=== PATIENT | female | born 1990 | race Caucasian/White ===

== ENCOUNTER 2020-05-21 10:33 | Outpatient (REF) | payer OTHER, SELFPAY ==
[2020-05-21 10:51] LABS: COVID-19 Test Negative (Negative)
== END 2020-05-21 10:34 | disposition home or self-care (01) ==
LOC: HO.LAB 10:33
PROVIDERS: PCP Family Medicine; Visit Provider Internal Medicine
DX: Z20.828 Contact with and (suspected) exposure to other viral communicable diseases (principal)
CPT/HCPCS: 87635; C9803

== ENCOUNTER 2020-06-23 08:00 | Outpatient (RCR) | payer OTHER, SELFPAY ==
[2020-05-08 08:15] VITALS: BP 95/64; PULSE 89; O2SAT 100
== END 2020-07-23 07:30 | disposition other institution (70) ==
LOC: HO.PT 08:00
PROVIDERS: PCP Family Medicine; Visit Provider Advanced Practice Midwife
DX: O26.892 Other specified pregnancy related conditions, second trimester (principal); M54.5 Low back pain; Z3A.00 Weeks of gestation of pregnancy not specified
CPT/HCPCS: 97110; 97140; 97161; 97530

== ENCOUNTER 2020-09-22 12:17 | Outpatient (REF) | payer OTHER, SELFPAY ==
[2020-09-22 14:29] LABS: Alanine Aminotransferase 11 U/L (0-31); Albumin Level 4.2 g/dL (3.5-5.0); Alkaline Phosphatase 91 U/L (39-117); Anion Gap 10 (12-20); Aspartate Amino Transferase 16 U/L (5-31); Bilirubin Total < 0.2 mg/dL (0.0-1.0); Blood Urea Nitrogen 13 mg/dL (9-16); C Reactive Protein 0.05 mg/dL (< or = 0.50); Calcium 9.6 mg/dL (8.4-10.2); Carbon Dioxide 28 mmol/L (22-29); Chloride 107 mmol/L (96-108); Estimated Glomerular Filt Rate > 60; Glucose Random 99 mg/dL (60-115); Potassium 4.2 mmol/L (3.3-5.1); Sodium 141 mmol/L (135-145); Total Protein 7.9 g/dL (6.5-8.0)
[2020-09-24 20:02] LABS: TS Negative Control Passed; TS Panel A 0; TS Panel B 0; TS Positive Control Passed; TSpotTB Negative (SeeBelow)
== END 2020-09-22 12:18 | disposition home or self-care (01) ==
LOC: HO.LAB 12:17
PROVIDERS: PCP Family Medicine; Visit Provider Internal Medicine Gastroenterology
DX: K50.80 Crohn's disease of both small and large intestine without complications (principal)
CPT/HCPCS: 36415; 80053; 86140; 86481

== ENCOUNTER 2021-08-30 14:07 | Outpatient (REF) | payer OTHER, SELFPAY ==
[2021-08-30 14:49] LABS: Influenza A PCR NEGATIVE (Negative); Influenza B PCR NEGATIVE (Negative); Resp Syncy Virus RNA Qual PCR NEGATIVE (Negative); SARS COV2 PCR INHOUSE NEGATIVE (Negative)
== END 2021-08-30 14:08 | disposition home or self-care (01) ==
LOC: HO.LNP 14:07
PROVIDERS: Visit Provider Family Medicine
DX: Z20.822 Contact with and (suspected) exposure to COVID-19 (principal); B34.9 Viral infection, unspecified
CPT/HCPCS: 0241U; 87071

== ENCOUNTER 2021-09-23 10:52 | Outpatient (REF) | payer OTHER, SELFPAY ==
[2021-09-23 11:13] LABS: MANUAL DIFF FLAG NO
[2021-09-23 11:55] LABS: Basophils Percent Auto 0.4 % (0-2); Hematocrit 38.4 % (37.0-47.0); Hemoglobin 11.6 g/dl (12.0-16.0); Imm Gran Abs Auto 0.01 X10*3/uL (0.00-0.03); Imm Gran Pct Auto 0.2 % (0.0-0.4); Lymphocytes Absolute Auto 1.6 X10*3/uL (1.2-4.9); Lymphocytes Percent Auto 29.3 % (20-40); Mean Corpuscular HGB Conc 30.2 g/dl (31.0-35.0); Mean Corpuscular Hemoglobin 26.2 pg (27.0-33.0); Mean Corpuscular Volume 86.7 fL (80.0-98.0); Mean Platelet Volume 8.1 fL (9.4-12.3); Monocytes Absolute Auto 0.4 X10*3/uL (0.1-1.2); Monocytes Percent Auto 6.9 % (2-11); Neutrophils Absolute Auto 3.4 x10*3/uL (2.0-8.3); Neutrophils Percent Auto 63.2 % (45-73); Platelet Count 414 X10*3/uL (160-400); Red Blood Count 4.43 X10*6/uL (4.20-5.50); White Blood Count 5.4 X10*3/uL (4.8-10.8)
[2021-09-23 12:34] LABS: Alanine Aminotransferase 8 U/L (0-31); Albumin Level 4.5 g/dL (3.5-5.0); Alkaline Phosphatase 85 U/L (39-117); Anion Gap 9 (12-20); Aspartate Amino Transferase 13 U/L (5-31); Bilirubin Total 0.7 mg/dL (0.0-1.0); Blood Urea Nitrogen 16 mg/dL (9-16); C Reactive Protein 0.14 mg/dL (< or = 0.50); Calcium 9.7 mg/dL (8.4-10.2); Carbon Dioxide 27 mmol/L (22-29); Chloride 104 mmol/L (96-108); Estimated Glomerular Filt Rate > 60; Glucose Random 75 mg/dL (60-115); Potassium 4.4 mmol/L (3.3-5.1); Sodium 136 mmol/L (135-145); Total Protein 8.4 g/dL (6.5-8.0)
[2021-09-23 12:55] LABS: Vitamin D 25-OH Total 14.3 ng/mL (>30)
[2021-09-24 08:04] LABS: HBS Num1 11.54 mIU/mL (0-7.99)
[2021-09-24 09:30] LABS: HBS Num2 10.35 mIU/mL (0-7.99); HBS Num3 9.75 mIU/mL (0-7.99)
[2021-09-24 09:31] LABS: ~Hepatitis B Surface Antibody GRAYZONE (Nonreactive)
[2021-09-25 14:16] LABS: TS Negative Control Passed; TS Panel A 0; TS Panel B 0; TS Positive Control Passed; TSpotTB Negative (Negative)
== END 2021-09-23 10:53 | disposition home or self-care (01) ==
LOC: HO.LAB 10:52
PROVIDERS: Visit Provider Internal Medicine Gastroenterology
DX: Z11.1 Encounter for screening for respiratory tuberculosis (principal); K50.90 Crohn's disease, unspecified, without complications
CPT/HCPCS: 36415; 80053; 82306; 85025; 86140; 86481; 86706

== ENCOUNTER 2022-05-06 15:00 | Outpatient (REF) | payer OTHER, SELFPAY ==
[2022-05-06 15:31] LABS: MANUAL DIFF FLAG NO
[2022-05-06 16:02] LABS: Basophils Percent Auto 0.1 % (0-2); Eosinophils Percent Auto 0.2 % (0-4); Hematocrit 34.6 % (37.0-47.0); Hemoglobin 11.2 g/dl (12.0-16.0); Imm Gran Abs Auto 0.03 X10*3/uL (0.00-0.03); Imm Gran Pct Auto 0.4 % (0.0-0.4); Lymphocytes Absolute Auto 1.8 X10*3/uL (1.2-4.9); Mean Corpuscular HGB Conc 32.4 g/dl (31.0-35.0); Mean Corpuscular Hemoglobin 26.9 pg (27.0-33.0); Mean Platelet Volume 8.2 fL (9.4-12.3); Monocytes Absolute Auto 0.3 X10*3/uL (0.1-1.2); Monocytes Percent Auto 3.8 % (2-11); Neutrophils Absolute Auto 6.2 x10*3/uL (2.0-8.3); Neutrophils Percent Auto 73.5 % (45-73); Platelet Count 323 X10*3/uL (160-400); Red Blood Count 4.17 X10*6/uL (4.20-5.50); Red Cell Distribution Width 13.1 % (11.0-16.0); White Blood Count 8.4 X10*3/uL (4.8-10.8)
[2022-05-06 16:10] LABS: Estimated Average Glucose 82 mg/dL; Hemoglobin A1c % 4.5 %
[2022-05-06 16:45] LABS: Syphilis Screen Nonreactive (Nonreactive)
[2022-05-06 16:47] LABS: Ferritin 36 ng/mL (10-122)
[2022-05-06 17:02] LABS: Folate 13.5 ng/mL (> or = 4.0); Vitamin B12 352 pg/mL (200-900)
[2022-05-09 04:40] LABS: HBsAGNum1 0.42 S/CO (0.00-0.99); HIV AB/AG Nonreactive (Nonreactive); HIV Num 1 0.07 S/CO (0.00-0.99); Hepatitis B Surface Antigen Negative (Negative); ~HepC Num1 0.11 S/CO (0.00-0.79); ~Hepatitis C Antibody Nonreactive (Nonreactive)
[2022-05-10 01:48] LABS: Rubella IgG Antibody 9.38 Index
== END 2022-05-06 15:01 | disposition home or self-care (01) ==
LOC: HO.LAB 15:00
PROVIDERS: PCP Family Medicine; Visit Provider Nurse Practitioner Family
DX: O99.611 Diseases of the digestive system complicating pregnancy, first trimester (principal); K50.919 Crohn's disease, unspecified, with unspecified complications
CPT/HCPCS: 36415; 82607; 82728; 82746; 83036; 85025; 86762; 86780; 86787; 86803; 87086; 87340; 87389

== ENCOUNTER 2023-12-22 16:22 | Outpatient (REF) | payer OTHER, SELFPAY ==
[2023-12-22 16:43] LABS: MANUAL DIFF FLAG NO
[2023-12-22 17:47] LABS: Basophils Percent Auto 0.3 % (0-2); Eosinophils Percent Auto 0.6 % (0-4); Hematocrit 35.9 % (37.0-47.0); Hemoglobin 11.3 g/dl (12.0-16.0); Imm Gran Abs Auto 0.02 X10*3/uL (0.00-0.03); Imm Gran Pct Auto 0.3 % (0.0-0.4); Lymphocytes Absolute Auto 2.1 X10*3/uL (1.2-4.9); Lymphocytes Percent Auto 32.1 % (20-40); Mean Corpuscular HGB Conc 31.5 g/dl (31.0-35.0); Mean Corpuscular Hemoglobin 26.7 pg (27.0-33.0); Mean Corpuscular Volume 84.9 fL (80.0-98.0); Mean Platelet Volume 8.4 fL (9.4-12.3); Monocytes Absolute Auto 0.4 X10*3/uL (0.1-1.2); Monocytes Percent Auto 5.9 % (2-11); Neutrophils Absolute Auto 3.9 x10*3/uL (2.0-8.3); Neutrophils Percent Auto 60.8 % (45-73); Platelet Count 344 X10*3/uL (160-400); Red Blood Count 4.23 X10*6/uL (4.20-5.50); Red Cell Distribution Width 13.8 % (11.0-16.0); White Blood Count 6.5 X10*3/uL (4.8-10.8)
[2023-12-22 18:22] LABS: Alanine Aminotransferase 10 U/L (0-31); Albumin Level 4.3 g/dL (3.5-5.0); Alkaline Phosphatase 75 U/L (39-117); Anion Gap 10 (12-20); Aspartate Amino Transferase 14 U/L (5-31); Bilirubin Total 0.4 mg/dL (0.0-1.0); Blood Urea Nitrogen 10 mg/dL (9-16); Calcium 9.5 mg/dL (8.4-10.2); Carbon Dioxide 26 mmol/L (22-29); Chloride 107 mmol/L (96-108); Cholesterol 139 mg/dL (<200); Estimated Glomerular Filt Rate > 60; Glucose Random 78 mg/dL (60-115); HDL Cholesterol 55 mg/dL (>40); LDL Cholesterol Calculated 75 mg/dL (<100); Potassium 3.8 mmol/L (3.3-5.1); Sodium 139 mmol/L (135-145); Total Protein 8.1 g/dL (6.5-8.0); Triglycerides 47 mg/dL (<150)
[2023-12-22 18:40] LABS: Vitamin D 25-OH Total 11.3 ng/mL (>30)
[2023-12-22 18:45] LABS: Vitamin B12 564 pg/mL (200-900)
== END 2023-12-22 16:23 | disposition home or self-care (01) ==
LOC: HO.LAB 16:22
PROVIDERS: Visit Provider Family Medicine
DX: Z00.00 Encounter for general adult medical examination without abnormal findings (principal)
CPT/HCPCS: 36415; 80053; 80061; 82306; 82607; 84443; 85025

== ENCOUNTER 2025-05-15 09:18 | Emergency (ER) | payer OTHER, SELFPAY ==
--- NOTE | ~2025-05-15 | XR_ITS ---
EXAMINATION: XR ANKLE, LEFT CLINICAL INFORMATION: ROLLED L ANKLE, DELMER, SWELLING COMPARISON: None available. TECHNIQUE: AP, lateral, and mortise views of the left ankle. FINDINGS: Transverse fracture through the lateral malleolus, with a small linear displaced fragment. Ankle mortise is maintained. Joint spaces are preserved. Ankle joint effusion. Soft tissue swelling overlying the lateral malleolus. XR/XR ankle LT min 3V IMPRESSION: Distal fibular fracture. No dislocation. Electronically signed by: Nicolette Moralez MD 05/15/2025 10:13 AM EDT
[2025-05-15 09:21] VITALS: BP 108/71; PULSE 85; RESP 16; TEMP 36.4; O2SAT 100
--- NOTE | 2025-05-15 10:29 | ED_ITS ---
HPI - General Adult General Chief complaint: Extremity Injury, Lower Stated complaint: fall Time Seen by Provider: 05/15/25 10:29 Source: patient Mode of arrival: wheelchair Limitations: no limitations History of Present Illness ED Provider: Thuy Jones PA-C HPI narrative: Patient is a 35 year old assigned female at with no reported medical history presenting to the emergency department today with left ankle pain. Patient states that she was taking a picture with her child when she rolled her left ankle on a large piece of concrete / rock. Patient denies any other complaints at this time. Related Data Home Medications ?Medication ?Instructions ?Recorded ?Confirmed No Known Home Meds 08/30/21 08/30/21 Allergies Allergy/AdvReac Type Severity Reaction Status Date / Time No Known Allergies Allergy Unverified 05/15/25 09:22 Review of Systems Constitutional: Constitutional: Reports as per HPI Eyes: Eyes: Reports as per HPI ENT: Reports as per HPI Cardiovascular: Cardiovascular: Reports as per HPI Respiratory: Respiratory: Reports as per HPI Gastrointestinal: Gastrointestinal: Reports as per HPI Genitourinary: Genitourinary: Reports as per HPI Musculoskeletal: Musculoskeletal: Reports as per HPI Integumentary/Breasts: Skin/Breast: Reports as per HPI Neurologic: Reports as per HPI Psychiatric: Psychiatric: Reports as per HPI Endocrine: Endocrine: Reports as per HPI Hematologic/Lymphatic: Hematologic/Lymphatic: Reports as per HPI Allergic/Immunologic: Allergic/Immunologic: Reports as per HPI [facility] Past Medical History Attestation statement: The following information was validated with the patient. Source: old records reviewed and nursing notes reviewed Physical Exam ED Vital Signs: Vital Signs - 24 hr 05/15/25 09:21 05/15/25 11:50 05/15/25 12:03 Temperature 97.6 F 98.1 F 98.1 F Pulse Rate 85 70 70 Respiratory Rate 16 14 14 Blood Pressure 108/71 106/62 106/62 Pulse Oximetry 100 99 99 Oxygen Delivery Method Room Air Room Air Room Air BMI result Body Mass Index 30.0 Const General: cooperative, no acute distress, alert and awake Nutritional Appearance: well nourished Orientation/consciousness: patient oriented x3 HENMT Head: Yes normal to inspection and Yes atraumatic Ears: hearing grossly normal bilaterally and external ears normal General nose exam: Normal external nose present, no nasal discharge noted and no epistaxis Face and sinus: Yes normal facial exam, No abrasion and No laceration Mouth: Normal oral and palatal mucosa present, no drooling and no muffled voice Eyes General: appearance normal, both eyes and all related structures Periorbital: periorbital findings normal Eyelids: Yes eyelids normal Conjunctivae: conjunctivae normal Pupils: Equal, round and reactive pupils present EOM: EOMs intact bilaterally Neck Neck: Yes normal visual inspection and Yes full ROM Resp Effort & Inspection: normal respiratory effort and able to speak in complete sentences Neuro General: patient oriented x3, moves all extremities and CN's II-XI intact bilaterally Cranial nerves: Yes Equal, round and reactive pupils present Cognition (Neuro): normal cognition Extrem Other: swelling present to the left ankle - specifically along the medial aspect pain with left ankle ROM General: Yes capillary refill normal Psych Appearance: grossly normal Mental Status: mental status grossly normal Affect: normal affect Attitude: cooperative Thought process: Normal thought process present Thought content: Normal thought content present Insight: Good insight present (Psych) Medications Administered Discontinued Medications Generic Name Dose Route Start Last Admin Trade Name Ryan PRN Reason Stop Dose Admin Ketorolac Tromethamine 15 mg 05/15/25 11:22 05/15/25 11:54 Ketorolac Tromethamine 15 Mg/Ml Vial IM 05/15/25 11:23 15 mg ONCE ONE Administration Procedures Orthopedic Splinting/Casting Left ankle: Side: left Lower Extremity Injury Location: ankle Lower Extremity Immobilizer: posterior splint and Gamboa dressing Other Orthopedic Equipment: crutches Medical Decision Making Medical Decision Making MDM Narrative: Patient is a 35 year old assigned female at with no reported medical history presenting to the emergency department today with left ankle pain. Patient's physical exam was as noted in the physical exam portion of this note. Patient's left ankle x-ray showed a distal fibular fracture. I explained my physical exam findings as well as all test results to the patient. I answered all questions asked by the patient. Patient's left lower extremity was placed in a posterior short leg splint with bulky padding, without incident. Patient's PMS was intact in the left lower extremity prior to and after splint placement. Patient was given crutches with crutch instructions and was able to demonstrate appropriate crutch use while in the department. I stressed the importance of the patient taking her medication as directed (either prescribed or as the over the counter packaging recommends). I stressed the importance of the patient following up with her primary care provider and the podiatry or orthopedic team. I stressed the importance of the patient returning to the emergency department immediately if her symptoms were to worsen or if she were to develop any dizziness, shortness of breath, difficulty breath ing, chest pain, blurry vision, loss of vision, nausea, vomiting, abdominal pain, fever, chills, back pain, or any other complaints. Patient verbalized agreement and understanding with this treatment plan and discharge. Differential Diagnosis Differential Diagnoses: The differential diagnosis associated with the presentation includes Left ankle fracture Tibial fracture Fibular fracture Sprain Strain Admission/Observation Consideration of admission/observation: Escalation of care including admission/observation considered Patient would have been admitted to the hospital had her work up had any findings where hospital admission was appropriate and her clinical presentation warranted hospital admission. Independent Interpretation I performed an independent interpretation of an: Plain X-Ray Interpretation: My interpretation is in agreement with the radiologist's impression of this imaging study. Reason for Exam: ROLLED L ANKLE, DELMER, SWELLING EXAMINATION: XR ANKLE, LEFT CLINICAL INFORMATION: ROLLED L ANKLE, DELMER, SWELLING COMPARISON: None available. TECHNIQUE: AP, lateral, and mortise views of the left ankle. FINDINGS: Transverse fracture through the lateral malleolus, with a small linear displaced fragment. Ankle mortise is maintained. Joint spaces are preserved. Ankle joint effusion. Soft tissue swelling overlying the lateral malleolus. XR/XR ankle LT min 3V IMPRESSION: Distal fibular fracture. No dislocation. Electronically signed by: Nicolette Moralez MD 05/15/2025 10:13 AM EDT Dictated By: Nicolette Moralez MD Signed By: Electronically signed by Nicolette Moralez MD 05/15/25 1013 Radiology Impression Discussion of test interpretation with radiology: I have reviewed the radiologist's reading. Discharge Plan Discharge Clinical Impression: Ankle fracture Qualifiers: Encounter type: initial encounter Fracture type: closed Laterality: left Qualified Code(s): S82.892A - Other fracture of left lower leg, initial encounter for closed fracture Patient Disposition: Home, Self-Care Instructions: Ankle Fracture (DC), Crutch Instructions (ED) Additional Instructions: Do NOT bear any weight on your left lower extremity. Do NOT stick anything down / into your splint. Do NOT get your splint wet. Do NOT remove your splint. If you have any change in sensation, movement, or color of your left toes - you may loosen the outer JACK wraps. If you find yourself loosening the JACK wraps to the point of seeing the white splint material underneath - STOP and proceed to your closest Emergency Department, immediately. Follow up with your primary care provider and the podiatry and/or the orthopedic team team. Return to the emergency department immediately if your symptoms worsen or if you develop any numbness, tingling, dizziness, shortness of breath, difficulty breathing, chest pain, blurry vision, loss of vision, nausea, vomiting, abdominal pain, fever, chills, back pain, or any other complaints. If you do not have a primary care provider - call any of the below numbers to establish and follow up with a primary care provider. [facility] Primary Care ([place]) [phone] [place] [address], [address] [facility] Primary Care (2 [address] [place]) [phone] [place] [address], [address] [facility], [address] [facility] Primary Care ([address] [place]) [phone] [place] [address], [address] [facility], [address] [facility] Primary Care ([place]) [phone] [place] [address], [address] [facility], [address] [facility] Family Medicine [phone] [place] [address], [phone] Please see the information below about our Patient Portal. If you are not yet enrolled in the [facility] Patient Portal, you will receive an enrollment email invitation following your visit to any [facility] setting. You may also self-enroll in the Patient Portal by visiting our website: [email or web address] The following information is required to access the Patient Portal: - Your [facility] Medical Record Number - Your personal home email address (must match what is in your electronic medical record, Registration staff can assist with this) - Name - Date of Capabilities of the Patient Portal: - Message some providers - View upcoming appointments - Access your health summary, medical history, and visit history - View current conditions and allergies - View procedure and lab results - View your medications, including guidelines, side effects, and precautions - Complete pre-appointment questionnaires requested by your provider - Ready summary reports of your office visits and procedures To access the Patient Portal Mobile Shanika, follow these directions: - Search Zemanta in the Shanika Store or [employer] Store - Download the Shanika - Search for [facility] - Enter your login/password Prescriptions: No Action No Known Home Meds Referrals: [facility] Orthopedic Surgeons [Provider Group] Referral Note: Call to establish and follow up with the orthopedic team. [facility] Podiatry [Provider Group, Podiatry] Referral Note: Call to establish and follow up with podiatry for your left ankle fracture. Stand Alone Forms: Work/School Release Interventions: ED Discharge Assessment Last Done: 05/15/25 12:03 Discharge Date/Time: 05/15/25 12:05 Print Language: Spanish
--- OUTSIDE RECORDS SUMMARY | 2025-05-15 11:19 | XMS_ITS | Encounter Summary ---
Author Organization [facility] Address [address] [facility] [address] [place] [address] Phone Care Team Providers Care Pediatric Ophthalmologist Name Role Phone Shantanu De León DO Unavailable Shantanu De León DO Primary Care Provider [phone] Yesenia Craig CNM Unavailable Reason for Visit * Reason Onset Date Comments triage 02/13/2025 UTI - frequency, urgency Encounter Details Date Type Department Care Team ([facility] st Contact Info) Description 02/13/2025 Telephone [facility] [address] [place] [address] Shantanu De León DO [address] [facility], [address] [place] [address] [email or web address] triage (UTI - frequency, urgency) Social History Tobacco Use Types Packs/Day Years Used Date Smoking Tobacco: Never Smokeless Tobacco: Never Alcohol Use Standard Drinks/Week Comments Not Currently 0 (1 standard drink = 0.6 oz pur e alcohol) 2 times a month Child or Family Care Answer Date Record ed Do you have problems with on e of the following making it difficult for you to work, study, or receive health care? No 03/03/2022 Education Answer Date Recorded Are you interested in more education? Not on cydney e 03/12/2024 Are you concerned about learning? Not on file 03/12/2024 No 03/12/2024 No 03/12/2024 Food Answer Date Recorded Within the past 6 months we worried whether our food would run out before we got money to buy more. Never True 03/03/2022 Within the past 6 months the food we bought just didn't last and we didn't have enough money to get more. Never True Residential Stability Answer Date Recor ded What is your housing situation today? I have beverly sing 03/03/2022 How many times have you move d in the past 12 months? Zero (I did not move) 03/03/2022 Paying for Meds Answer Date Recorded Do you have trouble paying for medicines? No 03/03/2022 Paying Utility Bills Answer Date Record ed Do you have trouble paying your heating or elect ricity bill? No 03/03/2022 Transportation Answer Date Recorded Has the lack of transportati on kept you from medical appointments or from getting medications? No 03/03/2022 Unemployment Answer Date Recorded Are you currently unemployed or working on a part-time or temporary basis, and looking for work? No 03/03/2022 Digital Access Answer Date Recorded No 12/12/2022 No 12/12/2022 Reliable internet access at home? Not on file 12/12/2022 Device with a working camera? Not on file Intimate Partner Violence Answer Date R ecorded Denied Basic Needs Not on file 07/31/2024 In the past 12 months have y ou been in a relationship with a person who hurts, threatens, or tries to control you? No 07/31/2024 Worried food would run out Not on file 07/31 In the past 12 months have y ou been in a relationship with a person who hurts, threatens, or tries to control you? 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 02/10 Have you ever experienced these symptoms before? YES Reason patient was not scheduled? Green Call Disposition: Patient booked for Green Symptoms per [facility] RYOG instructions. Additional Information: Schedule appointment or offer Care Alternative Options provided in RYOG Tool Only route to nursing pool if patient declines appointment or requests nursing advice. Reason for Call = TRIAGE Comment = GREEN + symptom, NURSING ADVICE REQUEST Scripting for scheduled visits: If your symptoms worsen or change before your visit, please call us or visit a local Urgent Care or Emergency Department. Scripting for visit unable to be scheduled: We currently don???t have appointments available but can add you to our cancellation list. In the meantime, we recommend seeking care at a [facility] Urgent Care center, through Virtual Ur[facility] Care on [facility] [place], or at a local urgent care center to address your symptoms. documented in this encounter Plan of Treatment Upcoming Encounters Date Type Department Care Team (Late st Contact Info) Description 08/07/2025 10:00 AM EST Office Visit [facility] Medicine [address] [place] [address] Shantanu De León DO [address] [address] [email or web address] documented as of this encounter Visit Diagnoses Not on filedocumented in this encounter Additional Health Concerns Assessment Noted Time PHQ-2 Depression Total Score: 0 02/14/20 25 11:41 AM EDT documented as of this encounter Care Teams Pediatric Ophthalmologist Relationship Specialty Start Date End Date Shantanu De León DO [address] [place] [id number] [email or web address] PCP - General 07/20/17 Shantanu De León DO [address] [place] [address] [email or web address] Historical LMR Provider 05/06/17 Yesenia Craig CNM [address] [place] [address], [facility] [address] [place] [address] [email or web address] Obstetrics and Gynecology 09/02/22 documented as of this encounter Additional Source Comments The information contained in this document represents components of the legal health record. It is not the complete legal health record.[facility]
--- OUTSIDE RECORDS SUMMARY | 2025-05-15 11:19 | XMS_ITS | Clinical Summary ---
Author Organization [facility] [address] [facility] Address [address] [place] [address] Phone Care Team Providers Care Warpman Name Role Phone Shantanu De León DO Primary Care Provider Active Problems Problem Noted Date Diagnosed Date Abdominal pain Overview (02/26/2025): DX:Abdominal pain; COMMENT: GI: 12-22 ?irritable bowel Crohn's disease of small and large intestines (CMS/HCC V24, CMS/HCC V28) Overview (02/26/2025): DX:Crohn's disease of small and large intestines (HCC); COMMENT: Symptomatic onset about age 13. Diagnosis by colonoscopy plus biopsies, Dr. Roberto Hewitt, [facility], 01/11/2011. Involvement of colon and terminal ileum, rectal sparing, no perianal disease. Small bowel series showed only minimal abnormalities of the terminal ileum. Start 2012. PPD screening test Overview (02/26/2025): DX:PPD screening test Headache Overview (02/26/2025): DX:Headache(784.0); COMMENT: normal head CT 09-03-06- [facility] Surgical History Surgery Date Site/Laterality Comments COLONOSCOPY 01/11/2011 PROCEDURE: HISTORICAL COLONOSCOPY; COMMENT: Kash; [facility]; exam to 50 cm; Ulceration, skip lesions, rectal sparing, biopsies characteristic of inflammatory bowel disease. No evidence of dysplasia. UPPER GASTROINTESTINAL ENDOSCOPY 10/19/2009 PROCEDURE: CO UPPER GI ENDOSCOPY PERFORMED; COMMENT: j shape stomach, small amount of bile in the stomach. gastric-biopsy:mild reactive gastropathy(HPylori-), SB-biopsy:Nl COLONOSCOPY 09/06/2017 PROCEDURE: HISTORICAL COLONOSCOPY; COMMENT: patchy erythema; random bx: Microscopic evidence of mild activity with microgranulomas. No dysplasia. Medical History Medical History Date Comments Headache(784.0) 09/08/2006 DX:Headache(784. 0); COMMENT: normal head CT 09-03-06- [facility] Abdominal pain 2005 DX:Abdominal marta n; COMMENT: GI: 12-22 ?irritable bowel Generalized osteoarthrosis, unspecified site DX:Generalized osteoarthrosi s, unspecified site; COMMENT: KNEE PAINS PPD screening test 11/22/2011 DX:PPD screen ing test Other specified personal his tory presenting hazards to health(V15.89) DX:Other specifie d personal history presenting hazards to health(V15.89); COMMENT: ONE ABNORMAL /CULPO Crohn's disease of small and large intestines (CMS/HCC V24, CMS/HCC V28) 01/14/2011 DX:Crohn's disease of small and large intestines (HCC); COMMENT: Symptomatic onset about age 13. Diagnosis by colonoscopy plus biopsies, Dr. Roberto Hewitt, [facility], 01/11/2011. Involvement of colon and terminal ileum, rectal sparing, no perianal disease. Small bowel series showed only minimal abnormalities of the terminal ileum. Start 2012. Family History Medical History Relation Name Comments Hypertension Aunt Hypertension Father Hypertension Maternal Grandmother Ulcerative colitis Maternal Grandmother e lderly age Colon cancer Mother's side over 65 years old, , Mother's GM Crohn's disease Neg Hx Relation Name Status Comments Aunt Father Alive Maternal Grandmother Mother Alive Mother's side Social History Tobacco Use Types Packs/Day Years Used Date Smoking Tobacco: Never Smokeless Tobacco: Never Alcohol Use Standard Drinks/Week Comments Yes 1.7 (1 standard drink = 0.6 oz p ure alcohol) Comments Unknown Sex and Gender Information Value Date Recorded Sex Assigned at Not on file Legal Sex Female 9:07 PM EST Gender Identity Not on file Sexual Orientation Not on file Obstetrics History Plan of Treatment Upcoming Encounters Date Type Department Care Team (Late st Contact Info) Description 06/04/2025 8:40 AM EST Consult Gastroenterology - [address] [place] [address] Darlene Donovan, MEGAN [address] [place] [address] Health Maintenance Due Date Last Done Comments Colorectal Cancer Screening: Colonoscopy 1988 Pneumococcal Vaccine: Pediatrics (0 to 5 Years) and At-Risk Patients (6 to 49 Years) (1 of 2 - PCV) 2007 Cervical Cancer Screening: Pap Smear 2009 Depression Screening 07/17/2024 HIV Screening 01/09/2025 Social Influencers of Health Screening 01/09/2025 COVID-19 Vaccine ( season) 2025 Influenza Vaccine (#1) 2025 , 05/13/2020, 05/30/2019, Additional history exists DTaP,Tdap,and Td Vaccines (11 - Td or Tdap) 09/19/2032 09/19/2022, 07/31/2020, 05/03/2018, Additional history exists RSV Immunization Adult Patients (1 - 1-dose 75+ series) 2063 HIB Vaccines Completed 08/31/1991, 07/31/1990 MMR Vaccines Completed 08/31/1991, 07/31/1990 IPV Vaccines Completed 02/28/1993, 10/15, 08/31/1991, Additional history exists Hepatitis B Vaccines Completed 09/28/2000, 05/31/2000, 01/24/1999 HPV Vaccines Completed 11/22/2007, 05/17, 04/12/2007 Hepatitis C Screening Completed 08/18/2022 Hepatitis A Vaccines Aged Out No long er eligible based on patient's age to complete this topic Meningococcal ACWY Vaccine Aged Out N o longer eligible based on patient's age to complete this topic Meningococcal B Vaccine Aged Out No l onger eligible based on patient's age to complete this topic RSV Immunization Patients Under 20 months Aged Out No longer eligible based on patient's age to complete this topic Varicella Vaccines Aged Out No longer eligible based on patient's age to complete this topic Insurance [facility] Care Teams Warpman Relationship Specialty Start Date End Date Shantanu De León DO [address] [place] [address], [address] [place] [id number] PCP - General Family Medicine 01/08/25
--- OUTSIDE RECORDS SUMMARY | 2025-05-15 11:19 | XMS_ITS | Clinical Summary ---
Author Organization [facility] Address [address] [address] Phone Care Team Providers Care Delivery Consultant Name Role Phone Shantanu De León DO Unavailable Shantanu De León DO Primary Care Provider Yesenia Craig CNM Unavailable Allergies No known active allergies Medications ergocalciferol (DRISDOL) 50,000 unit capsuleIndicati ons:Low vitamin D level Take 1 capsule (50,000 Units total) by mouth once a week. 52 capsule 1 01/03/2023 Active Active Problems Problem Noted Date Diagnosed Date Vitamin D deficiency, unspecified 04/23/2024 Assessment & Plan (04/23/2024 3:01 PM EDT): Repeat lab work ordered today-I will update her with the result. Follow-up in a month. Weight gain 04/23/2024 Assessment & Plan (08/01/2024 1:59 PM EST): I refilled her Contrave today and increase this to 2 tablets twice a day as tolerated. She was due for labs and she will get this done. Follow-up in 6 months. She will call if there are any other issues or concerns. She understands and agrees. Assessment & Plan (04/23/2024 3:03 PM EDT): Virtual Visit Attestation Modality: video Provider Location, state disclosed to patient: practice location Patient Location: other Patient State or Country: [place] notes that she is gaining weight after both of her pregnancies and she has not been able to lose weight despite eating healthy and exercising. She is interested in labs and was also interested in taking a medication-Contrave. She notes that she has heard about this medication from her friends. I gave her guidance regarding the possible side effects. She will slowly ramp up on this medication-I described this over the Zoom visit today. She was not interested in injectables at this time. Follow-up in a month. I informed her to call if she has any issues or side effects to the medication. I also wrote for labs today-I will update her with the results. She understands and agrees with this plan of action. Acute bacterial conjunctivitis of left eye 11/21 Assessment & Plan (11/21/2022 2:53 PM EDT): Kellen presents for bacterial conjunctivitis of the left eye and I treated her with the above antibiotic eyedrops-to be used as directed. She will call if there are any issues or concerns beyond this. I advised her to wash her hands frequently to try to stop the spread to the right eye. She understands and agrees with this plan. Anemia 08/26/2022 Overview (08/26/2022): Hgb 9.9 at 30 weeks Known alpha thal carrier Ferritin and transferrin ordered 08/26/22 Anemia defined as: Hgb < 11 1st & 3rd trimester Hgb < 10.5 2nd trimester consider checking serum ferritin to confirm iron deficiency Other testing as indicated (hgb electrophoresis or iron studies) Iron deficiency anemia- begin Fe supplement: 60 mg elemental Fe daily (BID or TID if severe anemia), consider stool softener and vitamin C CBC, ferritin, in 2-6 wks consider IV iron infusion (FEREHEME 510mg on CBC or cancer center) if severe, not able to take oral iron, or not improving Heme consult if anemia severe (< 8) or etiology is unclear Assessment & Plan (01/03/2023 2:23 PM EDT): PP Hgb 8.0. CBC ordered at 6w PPV. Assessment & Plan (10/13/2022 2:56 PM EDT): Pt has not done labs requested from August, plans to go today. We discussed continuing iron rich foods and can add a supplement qd. Advised how to take. Assessment & Plan (09/08/2022 3:10 PM EST): Discussed cbc results and recommended iron rich foods. Pt states she is not very good at taking pills and declines supplementation. Advised pt to go to lab for additional testing, she agrees. Thalassemia alpha carrier 05/27/2022 Overview (05/27/2022): Reviewed Scodix results. Pt is a carrier of alpha-thalassemia, she had a genetic consultation with a Mesitis counselor and again in the office. pt and her have decided not to pursue further testing. Other fatigue 10/14/2021 Assessment & Plan (10/14/2021 12:24 PM EDT): Kellen has been having fatigue more recently. I will have her go for above lab work and I will update her with the results. I also advised her to get some exercise outside to create a positive feedback loop. She will call if there are any other issues or concerns with this. 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 She is concerned about this. I put a referral into Dr. Boyd for consult and she was appreciative this. She will get a phone call for this. Low vitamin D level 02/14/2020 Overview (01/03/2023): Taking supplement of 50,000 weekly Assessment & Plan (03/03/2022 10:27 AM EDT): I will be checking a Vit D level. Assessment & Plan (02/14/2020 9:47 PM EDT): Start D3 800-1000 units daily Recheck Vitamin D level in 3 months Other headache syndrome 12/31/2019 Assessment & Plan (12/31/2019 1:48 PM EDT): A virtual visit was used during the COVID-[address] of an in-person visit. This real-time, interactive virtual clinical encounter was conducted using videoconferencing technology from clinic or home office. The patient participated in the visit from home/temporary residence or other location as specified below. Consent for virtual care, including informing the patient that insurance will be billed, and that in-person care is available in case of emergencies or as needed otherwise, was discussed at the time of scheduling. Pt participated in visit from home. Petty has been having left-sided head pains for the past month or so. She denies any blurry vision, earache or ringing in the ears. She notes that this is not getting worse and is more positional. I informed her that she should stay well-hydrated and she notes that she is to the best of her ability. I advised her that I would get the above lab work- CMP, CBC and a TSH and I will update her with the results. I informed her to call if her symptoms are getting worse or if she develops any blurry vision or worsening symptoms at which point I may consider a scan of the head. To note she is . She understands and agrees with this plan. Chronic pain of both knees 05/31/2019 Overview (03/27/2022): MFM consult recommended APS labs - Facundoia agrees Labs ordered - normal She also recommended Latitia consider a second opinion from rheumatology Assessment & Plan (08/11/2022 3:01 PM EST): Denies discomfort Assessment & Plan (03/27/2022 11:24 AM EDT): Client reports episodic severe joint pain which improved somewhat during last and was managed effectively by tylenol prn. At this time does not have specific diagnosis for joint pain. Assessment & Plan (06/16/2020 10:47 AM EST): Reviewed normal labs Assessment & Plan (05/18/2020 4:38 PM EST): Forgot about APS labs - will do today Assessment & Plan (02/14/2020 9:38 PM EDT): MFM consult recommended APS labs - Kellen agrees Labs ordered She also recommended Kellen consider a second opinion from rheumatology Will start with labwork Assessment & Plan (05/31/2019 1:52 PM EST): Kellen has worsening chronic knee pains. I will have her go for the above image study and I will update her with the results. I advised her to try glucosamine and chondroitin as well as consider omega 3 tabs. Routine medical exam 05/16/2018 Assessment & Plan (08/01/2024 1:50 PM EST): Kellen Graves is a 34 y.o. year old female presenting for her annual physical exam. I reviewed the adult health update-electronic questionnaire. she will go for her above lab work and I will update her with the results. she has a healthy diet and exercise regimen. she will follow up in a year for their annual physical exam. she understands and agrees. Assessment & Plan (05/31/2019 1:44 PM EST): Kellen Graves is a 29 y.o. year old female presenting for her annual physical exam. I reviewed the adult health update form today. she will go for her above lab work and I will update her with the results. she has a healthy diet and exercise regimen. she will follow up in a year for their annual physical exam. she understand and agrees. Assessment & Plan (05/16/2018 3:03 PM EDT): Kellen Graves is a 28 y.o. year old female presenting for her annual physical exam. I reviewed the adult health update form today. she will go for her above lab work and I will update her with the results. she has a healthy diet and exercise regimen. she will follow up in a year for their annual physical exam. she understand and agrees. Anxiety and depression Overview (01/03/2023): Took setraline 50 starting 8 mo after her first for PPA (which in hindsight started months earlier). Thinks she would take it again sooner if needed this PP period. Disc option of rx upon discharge. Has been off it for the PG and has been feeling fine. 01/03/23: Doing well at 6w PP, EPDS 0, will let us know if anything changes, as sertraline worked well in the past. Assessment & Plan (10/13/2022 2:56 PM EDT): States feels fine no problems at all. Assessment & Plan (09/08/2022 3:05 PM EST): Feels great. Assessment & Plan (08/25/2022 2:41 PM EST): EPDS 0. Kellen reports that has a calming and grounding effect on her. Does worry about recurrence of anxiety. We discussed early f/u, SSRI as needed, strategies for anxiety in period. Assessment & Plan (08/11/2022 3:00 PM EST): Continues to feel stable Assessment & Plan (07/20/2022 7:54 AM EST): Took setraline 50 starting 8 mo after her first for PPA (which in hindsight started months earlier). Thinks she would take it again sooner if needed this PP period. Disc option of rx upon discharge. Has been off it for the PG and has been feeling fine. Her got a new job allowing him to principal network architect and Kellen to stay home after this baby is born, so she is feeling a lot less stress. Assessment & Plan (03/03/2022 10:36 AM EDT): Kellen is more anxious than depressed. She is taking the Zoloft with side effects and she is unsure if she wants to continue with this. She will follow-up with her specialist. I did mention that she can try hydroxyzine to see if this helps with anxiety. She will call if there is any other issues or concerns. Assessment & Plan (10/14/2021 12:24 PM EDT): Kellen has anxiety and depression. I restarted her Wellbutrin at 100 mg-to be taken once a night for the next week and then to take this twice a day. Follow-up in the summertime for physical. She will call if there are any other issues or concerns. She understands and agrees. Assessment & Plan (04/08/2021 11:15 AM EDT): Víctor has an 8-month-old son. She has been having more issues with anxiety depression previously but it is improved a little bit. She is getting more sleep as her son is settled into the rhythm and this is a good thing. I did advise her that she should take breaks during the week and she should go out without her son to recharge her battery. She is in agreement with this. She would like to start a medication when she is stop breast-feeding and she intends to breast-feed until he is 1-year-old thus I advised her to follow-up in 3 months. I would likely restart Wellbutrin but low-dose. I informed her to call if there is any other issues or concerns in the meantime. She understands and agrees. Resolved Problems Problem Noted Date Diagnosed Date Resolved Date Normal intrauterine , antepartum 10/30/2022 01/03/2023 Assessment & Plan (10/30/2022 6:06 AM EDT): -Admit to CBC -Pt consented to COVID testing -Admission labs ordered -Reactive NST -Cont. Monitoring -May start using hydrotherapy -NO4 ordered as well -Request Epidural -Anticipate arrhythmia affecting p regnancy, antepartum 08/25/2022 01/03/2023 Overview (09/22/2022): [place] on Doppler at 30w0d echo completed with Dr. Knight and was wnl, records in media Assessment & Plan (09/22/2022 7:44 AM EST): echo completed and was wnl, no further evaluation was recommended Assessment & Plan (08/25/2022 2:42 PM EST): [place] on Doppler today. echo ordered. Nausea and vomiting in 04/08/2022 01/03/2023 Overview (07/14/2022): Improved with medications and advancing gestational age - ondansetron, plans to pay out of pocket per Bonjesta as prefers to minimize ondansetron (declines to try prior auth process) At 24w continues to have 1-2 episodes of vomiting/day. Takes Bonjesta at night and zofran prn in day. Assessment & Plan (09/19/2022 3:31 PM EST): Symptoms seem to have resolved. Only taking Pepcid at this point. Assessment & Plan (08/25/2022 2:42 PM EST): Much improved, almost totally resolved! She has only vomited twice in the past week, not using meds. Assessment & Plan (08/11/2022 3:02 PM EST): Pt reports n/v MUCH improved. Just took a vacation to [place] and had no n/v for an entire 7 days. Now that she is back, she feels sx sporadically. Assessment & Plan (07/14/2022 3:59 PM EST): Continues to have 1-2 episodes of vomiting/day. Takes Bonjesta at night and zofran prn in day. Refill of zofran given. Disc this is fine for remainder of PG. Also has some indigestion/heartburn--disc treating this may help w NVP. Assessment & Plan (06/14/2022 1:41 PM EST): Continues to have daily nausea. Feels OK as long as she takes the Bonjesta BID. Eating a full diet and can stay well hydrated. Assessment & Plan (05/06/2022 12:54 PM EDT): +weight gain. Good diet recall. Nausea is ongoing, vomiting less. Continues bonjesta and feels it is effective. Reports she feels dehydrated, will increase po fluids. Encouraged small frequent meals. Assessment & Plan (04/08/2022 11:53 AM EDT): Ordered Bonjesta at her request Encounter for supervision of other normal , third trimester 04/08/2022 01/03/2023 Overview (10/21/2022): CNM OB-CMI score: 0 [2022] Group PN care? * Rh positive GC/Chlam collected 07/14/22 PAP 06/18/18 NIL, HPV neg Tdap 09/19/22 Flu given 07/14/22 COVID-19 - J&J Hgb 9.9 GTT 88 28 wk Repeat RPR NR GBS NEG PPBC DORAN/Natural Family Planning screening opts for [place] Panel Myriad carrier screening and cfDNA will likely self pay. Ordered and req forms left at [place] front clerk on 04/07/22 Assessment & Plan (10/27/2022 2:42 PM EDT): Kellen is feeling great, just [place]ing [place] the [place] with her kiddo and is now officially ready for new baby to come. Baby is active, feels lower in her pelvis. Pt denies vb, ctxs, lof We reviewed how/when to call Encouraged plenty of water, good nutrition and a balance of activity and rest TOMMY 1 wk Assessment & Plan (10/21/2022 6:17 PM EDT): Kellen is a 32 y.o. at 38w1d doing well. Denies VB/LOF/Ctxs. + FM. Feeling lots of pressure when up and continues to have pubic symph pain. She has stopped working which she is feeling really happy about. Surprised she hasn't gone into labor yet because Froy was so early. Discussed PPBC - she does not want to use anything hormonal. They will likely want another baby soon so they are thinking of just being cautious. Both babies were well timed. Assessment & Plan (10/13/2022 2:58 PM EDT): Kellen reports is a 32yo @ 37 wks. Baby very active, no problems/concerns. Went to [facility] for a PROM check--not ruptured. We reviewed s/sx of PROM, early labor when to call GBS neg--results shared TOMMY 1 wk Assessment & Plan (10/06/2022 12:14 PM EDT): Kellen feeling lots of vaginal pressure, sp pain, and discomfort with adduction/abduction. Baby very active, no s/sx of labor. Some questions today about pprom management, drinking red raspberry tea, epidural, visitor policy all encouraged/answered GBS obtained and sent. Vertex by lemuel Last baby at 37+ wks--she is hoping to meet her baby soon! TOMMY 1 wk Assessment & Plan (09/22/2022 7:46 AM EST): Kellen feels well, just tired. 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 Baby has been active. TDAP today. Unsure position today, check carefully at n.v. and order U/S for position if unable to confirm vertex. Assessment & Plan (09/08/2022 3:08 PM EST): Telehealth appt with Kellen today. She reports feeling very well. Baby is active. Occasionally feels uterine cramping which resolves with hydration. Reviewed lab results and need for follow up testing which she will do. Denies s/sx of anemia Reviewed when to call TOMMY 2 wks. Assessment & Plan (08/25/2022 2:44 PM EST): Feeling well today. Had a fall on the ice yesterday, no direct impact to abdomen, has some muscle soreness. For this reason will defer TDAP to n.v. Her son Froy is 2, looking forward to being a big brother! Baby has been very active. CBC was not drawn with 3T labs, will do today after visit. Assessment & Plan (08/11/2022 3:04 PM EST): Kellen is a 32yo @ 28 wks. Delighted to feel baby more more than her first . Pt denies vb, lof, ctxs Planning to have 1T and 3T labs drawn this weekend. No complaints. TOMMY 2 wks. Assessment & Plan (07/20/2022 8:00 AM EST): Tried to get initial PN labs at [facility] bc otherwise ins won't pay. Her is getting new ins that she will go on his plan in 4w. Disc since we have her OB labs from last PG in 2020 and she has no increased risk factors for STDs, can wait to do Initial labs and T3 labs at the same time. 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 Flu shot given today. T3 labs ordered to do at 28w. Reviewed comfort measures. Reviewed steps to take toward optimal health in . Reviewed s/s PTL, danger signs, when/how to call. Assessment & Plan (06/14/2022 1:48 PM EST): Telephone visit to discuss U/S results. Just had anatomy scan this morning, all views complete and within normal limits per preliminary report. She is feeling movement. Has not done her labs yet as she has to do them at [facility], which has not rec'd orders. Sent message to fax lab orders. Assessment & Plan (05/27/2022 2:12 PM EST): Kellen is a 32 yo @ 17 +1 wks. Feeling an increase in nausea and vomiting bc she ran out of meds, has them on special order from a pharmacy in [place]. Pt has a decrease in sx if she eats more frequently--q hour. Rx: bonjesta and zofran faxed to pharmacy Reviewed upcoming anatomy scan Reviewed Myriad results. Pt is a carrier of alpha-thalassemia, she had a genetic consultation with a Mesitis counselor and pt and her have decided not to pursue further testing. TOMMY 3 wks. Assessment & Plan (05/06/2022 12:56 PM EDT): Pt generally well. Ongoing nausea, but able to live daily life and work. We reviewed comforts for nausea Discussed upcoming anatomy scan in 6 weeks--ordered. Going to all lab work today. TOMMY 4 wks. Assessment & Plan (04/08/2022 11:56 AM EDT): Client completing labs in near future at [facility], will do records request Will do Myriad aneuploidy and carrier screening at [facility] Labs, reqs left at front clerk of [place] office Extensive discussion about genetic screening in as majority of visit today - opts for universal panel and cfDNA Routine medical exam 03/03/2022 023 Assessment & Plan (03/03/2022 10:36 AM EDT): Kellen Graves is a 31 y.o. year old female presenting for her annual physical exam. I reviewed the adult health update-electronic questionnaire. she will go for her above lab work and I will update her with the results. she has a healthy diet and she will be working on her exercise regimen. she will follow up in a year for their annual physical exam. she understand and agrees. care following vaginal delivery 08/20/2020 04/08/2022 Overview (08/20/2020): of baby boy Froy Maza at 37w5d, 7 lb 5 oz, with [facility]. ROM > 24 hrs. anemia 08/20/2020 09/28/2020 Overview (08/20/2020): H/h 10.4/33.2 --> 8.5/26.6 Asymptomatic Plan to start iron supplement when bowels are resumed Normal intrauterine , antepartum 08/18/2020 09/28/2020 PROM (premature rupture of membranes) 08/17/2020 09/28/2020 Assessment & Plan (08/17/2020 6:15 PM EST): -+nitrizine, +pooling, +ferns -Pt is GBS negative -Pt advised that most women will go into labor w/in 24hrs of ROM. -Advised on increase risk for infection after ROM. This risk increases after 24hrs. -ACOG recommendations is for IOL after ROM. Nausea and vomiting of , antepartum 0 06/14/2020 Assessment & Plan (05/18/2020 4:41 PM EST): Has continued, got good relief from Zofran but insurance was only covering 9 tablets. Did a PA but has not been able to assess the status of it. Feels frustrated about this. I sent another 9 tabs of Zofran and will look into the status of the PA. Supervision of normal first , antepartum 01/09/2020 09/28/2020 Overview (08/04/2020): CNM OB-CMI score: 0 [01/09/2020] Group PN care? * O pos GC/Chlam Neg PAP Due 2020 Tdap 07/31/20 Flu Done at another facility Hgb 10.4 GTT 120 GBS * PPBC * screening - plans ERA Assessment & Plan (08/15/2020 10:48 PM EST): Kellen is a 30 y.o. at 37w doing great feeling baby move all the time. Denies any LOF/VB. Her only concern is that baby is measuring at 81st percentile and that she is worried that the baby will be too big at the time of delivery. Overall feeling well. -Pt cont. Taking PNV -GBS collected today -Reassured of baby's weight. Pt advised that US measurements at this GA can be off by a couple of lbs. EFW today is about 5.5-6lbs. -Reviewed s/sx of labor and when to call midwives. -RTO 1 wk. Could be virtual Assessment & Plan (08/04/2020 2:04 PM EST): Kellen is doing ok. She is feeling uncomfortable. Baby is moving well. Questions answered about labor and policies on CBC. Thinking she will stop working at 37 weeks. 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 Tdap today. GBS at next visit. Assessment & Plan (07/13/2020 3:52 PM EST): Kellen is doing well, no OB concerns. Feeling some general discomforts (low back pain, SOB, fatigue), but overall well. +FM. Denies LOF, VB, UCs. Reviewed FM, PTL, PEC, and labor precautions. NV in two weeks. Assessment & Plan (06/16/2020 10:46 AM EST): Feels fairly well, has persistent nausea but it is mild at this point. Eats a low-fiber diet due to Crohns, few fruits and vegetables, but does take a PNV. Doing GTT/CBC today. Discussed CBE, she is interested. Reviewed pre-registration packet. Reviewed third trimester warning signs. 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 Discussed virtual visits in third trimester, she is open to this - would have a fellow nurse record BP at work if so. Assessment & Plan (05/18/2020 4:42 PM EST): A virtual visit was used during the COVID-[address] of an in-person visit. This real-time, interactive virtual clinical encounter was conducted using videoconferencing technology from clinic or home office. The patient participated in the visit from home/temporary residence or other location as specified below. Consent for virtual care, including informing the patient that insurance will be billed, and that in-person care is available in case of emergencies or as needed otherwise, was discussed at the time of scheduling. Kellen is here doing well, on video with her partner Moreno. Denies VB/LOF/Ctxs. + FM. They were happy to have their anatomy US(normal) and also had a 3D US. Has had flu shot. We discussed recommendations for flu and TDAP vaccines for her and for family members as well. Discussed CBE options and planning for . Assessment & Plan (03/13/2020 5:02 PM EDT): A virtual visit was used during the COVID-[address] of an in-person visit. This real-time, interactive virtual clinical encounter was conducted using videoconferencing technology from clinic or home office. The patient participated in the visit from home/temporary residence or other location as specified below. Consent for virtual care, including informing the patient that insurance will be billed, and that in-person care is available in case of emergencies or as needed otherwise, was discussed at the time of scheduling. Kellen is doing ok. Still having nausea but better with zofran. Having a hard time drinking enough water. Strategies for hydration and nutrition reviewed. Discussed support group and CBE. Anticipatory guidance for visit schedule and testing reviewed. Anatomy scan scheduled for 04/07 with visit to follow. Assessment & Plan (02/14/2020 9:40 PM EDT): Discussed ERA vs CFDNA. After discussion Kellen decided on ERA. Advice given about 2018 nove l coronavirus by telephone 10/18/2019 02/14/2020 Assessment & Plan (10/18/2019 3:09 PM EDT): A virtual visit was used during the COVID-[address] of an in-person visit. I personally spent 10 minutes with the patient during this real-time interactive virtual clinical encounter, which was conducted using telephone-only technology, and >50% of which was devoted to counseling and coordinating care for the above issues. Consent for virtual care, including informing the patient that insurance will be billed, was discussed at the time of scheduling. I gave her guidance regarding the coronavirus. Due to the fact that she is taking Humira this can potentially compromise her immune system thus she should not be working around potentially sick patients at this time. Encounter for preconception consultation 06/25/2019 02/14/2020 Assessment & Plan (06/25/2019 6:28 PM EST): Kellen is here to discuss . She and her have been trying to conceive for about 4 months. She is currently on her menses. Her menses are regular, ranging from about 27-30 days, she feels ovulation. Have not conceived yet. She presents to discuss her chronic medical conditions and how may affect them. Particularly she is concerned about her chronic knee pain and need to take NSAID (ibuprofen) several times a month. She has had chronic lifelong knee pain and the only thing that helps is Ibuprofen. No relief from narcotics, braces, has minimally tried PT with no significant effect. 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 Over the years she feels like the pain has worsened- Sometimes happening 3 times a week and can cause her to be in tears if she does not take NSAID. She can also go weeks without having and it typically takes one dose for relief. Has not tried acupuncture. She saw a studio director whose only recommendation was to consider Xrays, which have just been ordered by her PCP. She has Chron's disease and is concerned that there could be an autoimmune or other inflammatory condition going on. Does not feel like she can go long periods of time without ibuprofen. A: 29 y/o here for preconception counseling Chronic B/L knee pain of unknown etiology Chron's Disease P: We discussed that change in body d/t can worsen joint pain. We discussed that Ibuprofen is recommended to be avoided in the but is sometimes used for short term arthritis flares in the first or second trimester and that the second trimester is the safer time for ibuprofen use. We reviewed that we recommend avoiding all NSAIDs after 30 wks d/t concern for closure of the PDA in the fetus which is required for circulation. Discussed alternative medications and therapies that could be considered such as acupuncture, PT, support braces, tylenol and narcotics (although we reviewed that narcotics have risks as well and have not been helpful for her in the past). I recommend that we schedule a MFM consult to discuss her history and get recommendations for managing her pain during a future and also see if there is any recommendation for workup for an autoimmune condition. She agrees Will refer to MFM We also discussed tracking ovulation techniques and trying for conception Recommended daily PNV which she is taking Follow up with + or If no spont after 8 months. Crohn's disease 05/31/2019 07/20/2022 Overview (2022): Dx: 8-9 years ago. Sx: Probably started age 13 --> Chronic abdominal pain, diarrhea, bloody diarrhea GI bleed 1.5 years ago Last flare 3 years ago Colonoscopy for Dx was limited due to inflammation Subsequent colonoscopies have confirmed Crohns in large colon Last colonoscopy: 08/2018 Past: Asacol, Azathiprine, Prednisone taper --> 17-18 BMs/day Current Meds: Humira x 7 years - stable MFM Consult with Dr Roche recommends continuing Humira, Could consider discontinuing towards the end of - pt states she was told 36 wks, to decrease prolonged exposure Growth U/S at 28 and 34 weeks Update as of 03/24/22: New GI provider as of winter 2020, same office, opted to have client stop Humira for now, planning colonoscopy which will now defer until Minimal to no symptoms Assessment & Plan (03/27/2022 11:22 AM EDT): Update as of 03/24/22: New GI provider as of winter 2020, same office, opted to have client stop Humira for now, planning colonoscopy which will now defer until Minimal to no symptoms Assessment & Plan (08/04/2020 2:00 PM EST): Growth at 81% at 34 weeks Assessment & Plan (07/13/2020 3:33 PM EST): Recommended u/s for growth at 34 weeks. Order placed already. Assessment & Plan (06/16/2020 10:47 AM EST): In good control. Repeat growth ordered. Assessment & Plan (02/14/2020 9:45 PM EDT): MFM Consult with Dr Roche recommends continuing Humira, Could consider discontinuing towards the end of - pt states she was told 36 wks, to decrease prolonged exposure Growth U/S at 28 and 34 weeks Assessment & Plan (10/18/2019 3:09 PM EDT): Kellen has Crohn's disease and she is taking Humira. This can compromise her immune system thus she should not be working around potential patients with potentially COVID- 19. I wrote a letter for her for work today. Assessment & Plan (05/31/2019 1:54 PM EST): Kellen is followed by her GI doctor. Chronic midline thoracic back pain 11/09/2018 06/14/2020 Assessment & Plan (11/09/2018 4:10 PM EDT): Kellen has mid back pain and I suspect this secondary to a muscle strain. She was advised to take the flexeril as directed at night and to use warm heat to the back. She will stay well hydrated. I sent a order for X-ray of the spine and if there is no issues with this she will go for they physical therapy script. She will call if this does not improve or if this gets worse. She understands and agrees. Other fatigue 05/16/2018 06/14/2020 Assessment & Plan (05/16/2018 3:21 PM EDT): Kellen has fatigue and this has been going on for years. She will go for the above lab work. I will update her with the results. Joint pain 05/16/2018 06/14/2020 Assessment & Plan (05/16/2018 3:21 PM EDT): Kellen has been having joint pains and she will go for the above lab work. She will be set up with a studio director at her request. Encounters Date Type Department Care Team Description 02/13/2025 2:40 PM EDT Telemedicine [facility] [address] [place] [id number] Radha Bolaños, INSPECTOR TOOL Dysuria (Primary Dx) 02/13/2025 Telephone [email or web address] [facility] [address] [place] [address] Shantanu De León, triage (UTI - frequency, urgency) from Last 3 Months Immunizations Immunization Administration Dates Next Due INFLUENZA, SPLIT VIRUS, TRIV ALENT W/ PRESERVATIVE IM 05/04/2016 Influenza Quadrivalent Preservative Free IM 12/03/2022,05/13/2020 Influenza Recombinant Trival ent Preservative Free IM 05/30/2019 Tdap 09/19/2022,07/31/2020,05/03/2018 Family History Medical History Relation Comments Hyperlipidemia Father Hypertension Father Nephrolithiasis Father Hypertension Maternal Grandmother Stroke Maternal Grandmother Hypertension Mother Epilepsy Paternal Grandmother Congenital heart disease Neg Hx Relation Status Comments Father Alive Maternal Grandmother Alive Mother Alive Paternal Grandmother Alive Son Alive Social History Tobacco Use Types Packs/Day Years Used Date Smoking Tobacco: Never Smokeless Tobacco: Never Tobacco Cessation:Counseling Given: Not Answered Alcohol Use Standard Drinks/Week Comments Not Currently [...] 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 Not on file Not on file Last Filed Vital Signs Vital Sign Reading Time Taken Comments Blood Pressure 124/70 08/01/2024 1:44 PM EST Pulse 87 08/01/2024 1:44 PM EST Temperature 36.1 C (97 F) 08/01/2024 1:44 PM EST Respiratory Rate 18 07/21/2023 2:34 PM EST Oxygen Saturation 99% 08/01/2024 1:44 PM EST Inhaled Oxygen Concentration - - Weight 78.8 kg (173 lb 12.8 oz) 08/01/2024 1:44 PM EST Height 162.6 cm (5' 4.02 ) 08/01/2024 1:44 PM ES T Body Mass Index 29.81 08/01/2024 1:44 PM EST Plan of Treatment Upcoming Encounters Date Type Department Care Team (Late st Contact Info) Description 08/07/2025 10:00 AM EST Office Visit [facility] Medicine [address] [place] [address] Shantanu De León DO [address] [facility], [address] [place] [address] [email or web address] Health Maintenance Due Date Last Done Comments POTASSIUM LEVEL 07/11/2020 01/10/2020 INFLUENZA VACCINE (#1) 2025 2, 05/13/2020, 05/30/2019, Additional history exists COVID-19 VACCINE ( season) 2025 03/31/2021 PAP SMEAR 01/03/2026 01/03/2023, 12/0 09/2017, 06/18/2018 DEPRESSION SCREENING 02/13/2026 02/13/2025 CREATININE LEVEL 04/18/2026 12/22/2023, , 10/16/2018 Postponed from 06/22/2024 (Patient Declines / Guardian Declines) LIPID PANEL 04/18/2026 01/10/2020 Postponed from 01/09/2021 (Patient Declines / Guardian Declines) SCREENING FOR DIABETES 04/18/2026 01/10/2020 Postp oned from 2023 (Patient Declines / Guardian Declines) Adult Td,Tdap Booster 09/19/2032 09/19/2022 , 07/31/2020, 05/03/2018 HEPATITIS C SCREENING Completed 08/18/2022 , 2022, 01/10/2020 HIV ONE-TIME SCREENING (18-65 YEARS) Completed 08/18/2022 SMOKING STATUS SCREENING (Once After 26 Yrs) Completed 02/13/2025 HEPATITIS A VACCINES Aged Out No long er eligible based on patient's age to complete this topic HIB VACCINES Aged Out No longer eligi ble based on patient's age to complete this topic MENINGOCOCCAL VACCINES (ACWY) Aged Out No longer eligible based on patient's age to complete this topic MENINGOCOCCAL VACCINES (B) Aged Out N o longer eligible based on patient's age to complete this topic PNEUMOCOCCAL VACCINES (0-49 years) Aged Out No longer eligible based on patient's age to complete this topic Medical Devices Not on file Procedures Procedure Name Priority Date/Time Associated Diagnosis Comments COMPREHENSIVE METABOLIC PANEL Routine 12/22/2023 2:53 PM EDT Laboratory examination ordered as part of a routine general medical examination PAP TEST Routine 01/03/2023 12:00 AM EDT HEPATITIS C ANTIBODY, QUALITATIVE Routine 08/18/2022 11:54 AM EST Encounter for supervision of other normal in first trimester LIPID PANEL Routine 01/10/2020 3:22 PM EDT Screening for lipid disorders Routine medical exam COMPREHENSIVE METABOLIC PANEL Routine 01/10/2020 3:22 PM EDT Other headache syndrome from Last 3 Months or Most Recently Relevant to Health Maintenance Results * Comprehensive metabolic panel (12/22/2023 2:53 PM EDT) Only the most recent of2 resultswithin the time period is included. Blood Shantanu De León DO LAB BLOOD ORDERABLES Final Resul t [address] [place] [address] [address] * Pap Test (01/03/2023 12:00 AM EDT) 01/03/2023 01/04/2023 9:0 1 AM EDT Narrative SEE NARRATIVE - 01/05/2023 3:00 PM EDT [address] [address] Softball Umpire: Hailey Constantino MD GOVERNMENT RELATIONS MANAGER Cytology Report FINAL DIAGNOSIS A. PAP SMEAR (SUREPATH) CE: SPECIMEN ADEQUACY: Satisfactory for evaluation; transformation zone present. INTERPRETATION: NEGATIVE FOR INTRAEPITHELIAL LESION OR MALIGNANCY. Electronically Signed Out By: VALERIE Rowland(ASCP) The Pap test is a screening test primarily for squamous cancers and precursors and has associated false-negative and false-positive results. New technologies such as liquid-based preparations may decrease but will not eliminate all false-negative results. Regular sampling and follow-up of unexplained clinical signs and symptoms are recommended to minimize false negative results. PROCEDURES/ADDENDA HPV Testing (Requested) Ordered Date: 01/04/2023 A. PAP SMEAR (SUREPATH) CE: Human Papilloma Virus Test NEGATIVE for high-risk Human Papilloma Virus types 16, 18, 45 and the Other high risk probe set (Includes 31, 33, 35, 39, 51, 52, 56, 58, 59, 66, 68) Note: Testing performed by [employer] HR-HPV analysis. Clinical correlation is advised. This HPV test was performed at [facility], [address] [place] [address]. This test has been FDA approved for SurePath cervical cytology specimens. The accuracy and precision of this test for all other specimen sources has been verified in the Cytopathology Laboratory of the [facility] and has not been cleared or approved by the U.S. Food and Drug Administration. Clinical correlation is advised. CLINICAL HISTORY Date of Last Menstrual Period: 01-26-2022 Menstrual History: Post Other Clinical Conditions: Screening Pap SPECIMEN SOURCE A: PAP SMEAR (SUREPATH) CE Patient Name: KELLEN GRAVES : 1990 (Age: 32) Sex: F Institution: [facility] Location: [facility] Date of Collection: 01/03/2023 Date of Reported: 01/05/2023 15:00 Results to: Mary Crocker CNM us Mary Crocker CNM, MPH CYTOLOGY ORDERABLES Fi nal Result Performing Organization Address [facility] Co de Phone Number SEE NARRATIVE * Hepatitis C antibody, qualitative (08/18/2022 11:54 AM EST) HCV NON-REACTIV E NON-REACTI VE [facility] Blood 08/18/2022 11:5 4 AM EST 08/18/2022 2:02 PM EST us Marco A Horan CNM LAB BLOOD ORDERABLES Final Resu lt Performing Organization Address [facility] Co de Phone Number [address] [place] [address] [address] * (ABNORMAL) Lipid panel (01/10/2020 3:22 PM EDT) HDL 68 mg/dL [facility] Comment: Interpretation <40 mg/dL: Low HDL cholesterol (major risk factor for CHD) Greater than or equal to 60 mg/dL: High HDL cholesterol ( negative risk factor for CHD) HDL - cholesterol is affected by a number of factors, e.g. smoking, excerise, hormones, sex and age. CHOLESTEROL 132 0 - 240 mg/dL [facility] TRIGLYCERIDES 49 30 - 160 mg/dL [facility] LDL 54 50 - 129 mg/dL [facility] Comment: LDL levels in terms of risk for coronary heart disease: <100 mg/dL: Optimal 100-129 mg/dL: Near or above optimal 130-159 mg/dL: Borderline high 160-189 mg/dL: High >190 mg/dL: Very High CARDIAC RISK RATIO 1.9(L) 3.3 - 4.4 C [facility] Blood 01/10/2020 3:22 PM EDT 01/10/2020 3:34 PM EDT us Shantanu De León DO LAB BLOOD ORDERABLES Final Resul t [facility] [address] [place] [address] from Last 3 Months or Most Recently Relevant to Health Maintenance [place] [address] [place] [address] [place] [facility] [place] [address] Advance Directives For more information, please contact: [phone] (9AM - 5PM [place], Monday-Monday) Documents on File Type Date Recorded Patient 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 Of Casino Marketing 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 Healthcare Proxy 08/26/2020 5:32 PM * Full Code (Latest Code Status on File) Date Activated Date Inactivated Comments 10/30/2022 5:21 AM Question Answer Comments Code Status Confirmed With: Patient * Full Code Date Activated Date Inactivated Comments 08/19/2020 4:36 AM 10/30/2022 5:21 AM Question Answer Comments Code Status Confirmed With: Patient * Full Code Date Activated Date Inactivated Comments 08/18/2020 9:35 AM 08/19/2020 4:36 AM Question Answer Comments Code Status Confirmed With: Patient Care Teams Delivery Consultant Relationship Specialty Start Date End Date Shantanu De León DO [address] [facility] [address] [place] [address] [email or web address] PCP - General 07/20/17 Shantanu De León DO [address] [facility] [address] [place] [address] [email or web address] Historical LMR Provider 05/06/17 Yesenia Craig CNM [address] [facility], [address] [place] [address] [email or web address] Obstetrics and Gynecology 09/02/22 Additional Source Comments The information contained in this document represents components of the legal health record. It is not the complete legal health record.[facility]
--- OUTSIDE RECORDS SUMMARY | 2025-05-15 11:19 | XMS_ITS | Encounter Summary ---
Author Organization [facility] Address [address] [facility] [address] [place] [id number] Phone Care Team Providers Care Electron Beam Welding Machine Operator Name Role Phone Shantanu De León DO Unavailable Shantanu De León DO Primary Care Provider [phone] Yesenia Craig CNM Unavailable Encounter Details Date Type Department Care Team (Late st Contact Info) Description 07/23/2020 Ancillary Orders [facility] [address] [place] [address] [place] [address] Yesenia Craig CNM [address] [facility], [address] [place] [address] 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, [address] [place] [address] [email or web address] documented as of this encounter Results * US OB GREATER THAN OR EQUAL TO 14 WEEKS FOLLOW-UP ONLY (07/23/2020 1:47 PM EST) Anatomical Region Laterality Modality Abdomen, Pelvis, Uterus/Adnexa U ltrasound 07/23/2020 1:41 PM EST Impressions 07/24/2020 2:59 PM EST 1. Single live IUP in vertex presentation with an EFW of 2812 grams which is at the 81st percentile. 2. The testing is normal. Narrative 07/24/2020 2:59 PM EST INDICATION: Crohn's disease DATING: Exam Date: Last Menstruation:11/28/2019 Estimated Delivery Date: September 03, 2020 Ultrasound Age: (36)w(04)d Gestational Age by LMP: (34)w(00)d Estimated Delivery by AUA: August 16, 2020 ANATOMY SCAN: Biparietal Diameter: 9.41 cm (38)w(03)d >98 % Hadlock Head Circumference: 32.10 cm (36)w(02)d 71% % Hadlock Abdominal Circumference: 31.43 cm (35)w(03)d 87% % Hadlock Femur Length: 7.04 cm (36)w(01)d 88% % Hadlock Lateral Ventricle: 5.6mm HC/AC Ratio: 1.02 FL/BPD Ratio: 75% FL/AC Ratio: 22% Estimated Weight: 6lb 3oz 2812grams 81% Hadlock Heart Activity: Present Heart Rate: 130 bpm Presentation: Vertex Amniotic Fluid: Normal Maximum Vertical Pocket: 7cm Placenta: Anterior Placental Grade: 2 Cord: 3 Vessel Cord WELLBEING ASSESSMENT: Amniotic Fluid Index (JESSENIA): 19.79 cm Quad 1: 7.01 cm Quad 2: 5.30 cm Quad 3: 3.49 cm Quad 4: 3.99 cm Breathin Movement: 2 Tone: 2 Amniotic Fluid: 2 Total Score: 8 TECH COMMENTS: Single active fetus cephalic presentation. Anterior placenta grade 2 Normal AFV with MVP = 7cm Growth is at or around the 81% BPP 8/8 The fetus was active with good tone. Transabdominal scanning was performed. Procedure Note Rancho Guerrero MD - 07/24/2020 INDICATION: Crohn's disease DATING: Exam Date: Last Menstruation:11/28/2019 Estimated Delivery Date: September 03, 2020 Ultrasound Age: (36)w(04)d Gestational Age by LMP: (34)w(00)d Estimated Delivery by AUA: August 16, 2020 ANATOMY SCAN: Biparietal Diameter: 9.41 cm (38)w(03)d >98 % Hadlock Head Circumference: 32.10 cm (36)w(02)d 71% % Hadlock Abdominal Circumference: 31.43 cm (35)w(03)d 87% % Hadlock Femur Length: 7.04 cm (36)w(01)d 88% % Hadlock Lateral Ventricle: 5.6mm HC/AC Ratio: 1.02 FL/BPD Ratio: 75% FL/AC Ratio: 22% Estimated Weight: 6lb 3oz 2812grams 81% Hadlock Heart Activity: Present Heart Rate: 130 bpm Presentation: Vertex Amniotic Fluid: Normal Maximum Vertical Pocket: 7cm Placenta: Anterior Placental Grade: 2 Cord: 3 Vessel Cord WELLBEING ASSESSMENT: Amniotic Fluid Index (JESSENIA): 19.79 cm Quad 1: 7.01 cm Quad 2: 5.30 cm Quad 3: 3.49 cm Quad 4: 3.99 cm Breathin Movement: 2 Tone: 2 Amniotic Fluid: 2 Total Score: 8 TECH COMMENTS: Single active fetus cephalic presentation. Anterior placenta grade 2 Normal AFV with MVP = 7cm Growth is at or around the 81% BPP 8/8 The fetus was active with good tone. Transabdominal scanning was performed. IMPRESSION: 1. Single live IUP in vertex presentation with an EFW of 2812 grams whichis at the 81st percentile. 2. The testing is normal. Yesenia Craig CNM [facility] Final Result documented in this encounter Visit Diagnoses Diagnosis Supervision of normal first , antepartum Supervision of normal first , antepartum documented in this encounter Additional Health Concerns Infection Onset Date Last Indicated Resolved Time CoV-Exposed Comment:Recent close contact documented in the COVID-19 PCR/PRO order 07/10/2021 07/12/2021 07/25/2021 1:[address] CoV-Risk Comment:Per Ambulatory Triage Form 07/12/2021 07/15/202107/25 1:22 AM EST Assessment Noted Time PHQ-2 Depression Total Score: 0 05/16/20 18 3:11 PM EDT documented as of this encounter Care Teams Electron Beam Welding Machine Operator Relationship Specialty Start Date End Date Shantanu De León DO [address] [place] [address] [email or web address] PCP - General 07/20/17 Shantanu De León DO [address] [place] [address] [email or web address] Historical LMR Provider 05/06/17 Yesenia Craig CNM [address] [address] [email or web address] Obstetrics and Gynecology 09/02/22 documented as of this encounter Additional Source Comments The information contained in this document represents components of the legal health record. It is not the complete legal health record.[facility]
[2025-05-15 11:50] VITALS: BP 106/62; PULSE 70; RESP 14; TEMP 36.7; O2SAT 99
[2025-05-15 12:03] VITALS: BP 106/62; PULSE 70; RESP 14; TEMP 36.7; O2SAT 99
== END 2025-05-15 12:05 | disposition home or self-care (01) ==
PROVIDERS: Emergency Provider Emergency Medicine
DX: S82.892A Other fracture of left lower leg, initial encounter for closed fracture (principal); X50.1XXA Overexertion from prolonged static or awkward postures, initial encounter; Y93.89 Activity, other specified; Y92.89 Other specified places as the place of occurrence of the external cause; Y99.8 Other external cause status
CPT/HCPCS: 29515; 73610; 96372; 99283; 99284; J1885

== ENCOUNTER → 2025-05-15 10:02 | Outpatient (BNV) | payer OTHER, SELFPAY | PROVIDERS: Visit Provider Radiology Body Imaging | DX: S82.402A Unspecified fracture of shaft of left fibula, initial encounter for closed fracture (principal); X50.9XXA Other and unspecified overexertion or strenuous movements or postures, initial encounter | CPT/HCPCS: 73610 ==